=== PATIENT | female | born 1985 | race Caucasian/White ===

== ENCOUNTER 2016-12-16 13:40 | Emergency (ER) | payer MEDICAID ==
[~2016-12-16] VITALS: Ht 157.5 cm; Wt 52.8 kg
[2016-12-16 13:43] VITALS: BP 133/70
== END 2016-12-16 14:29 | disposition home or self-care (01) ==
LOC: ED 14:23
DX: K01.1 Impacted teeth (principal)
CPT/HCPCS: 99283

== ENCOUNTER 2017-01-07 21:26 | Emergency (ER) | payer MEDICAID ==
[~2017-01-07] VITALS: Ht 157.5 cm; Wt 54.4 kg
[2017-01-07 21:40] VITALS: BP 132/84
== END 2017-01-07 23:33 | disposition home or self-care (01) ==
LOC: ED 23:22
DX: K08.89 Other specified disorders of teeth and supporting structures (principal)
CPT/HCPCS: 99283

== ENCOUNTER 2017-06-10 10:39 | Inpatient (IN) | payer MEDICAID ==
[~2017-06-10] VITALS: Ht 154.9 cm; Wt 63.6 kg
[2017-06-10 12:27] LABS: AMNI OBC PASS; AMNISURE POSITIVE (NEGATIVE)
[2017-06-10] MEDS ORDERED: OXYTOCIN 30U/ 0.9% NaCL 500ML 500 ML IV ONE (12:41)
[2017-06-10] MEDS ORDERED: FENTANYL PF 100 MCG/2ML IVPush PRN (13:00)
[2017-06-10] MEDS ORDERED: FENTANYL PF 100 MCG/2ML IV PRN (13:00)
[2017-06-10] MEDS ORDERED: ONDANSETRON 2MG/ML, 2ML IVPush PRN (13:00)
[2017-06-10 13:05] LABS: HEMATOCRIT 44.8 % (34.6-47.8); HEMOGLOBIN 15.4 g/dL (11.7-16.4); WHITE BLOOD COUNT 17.3 x10^3/uL (3.4-10)
[2017-06-10] MEDS ORDERED: MISOPROSTOL 200 MCG TABLET ONE (13:22)
[2017-06-10] MEDS ORDERED: NEWBORN KIT ONE (13:23)
[2017-06-10] MEDS ORDERED: LIDOCAINE 1%, 20ML ONE (13:23)
[2017-06-10 13:52] LABS: BLOOD UREA NITROGEN 8 mg/dL (7-18)
[2017-06-10 13:55] LABS: ASPARTATE AMINO TRANSFERASE 28 U/L (15-37)
[2017-06-10] MEDS ORDERED: LABETALOL 5MG/ML, 20ML ONE (15:16)
[2017-06-10] MEDS: LABETALOL 5MG/ML, 20ML IVPush PRN ×3 (15:21→17:21)
[2017-06-10] MEDS ORDERED: CALCIUM CARBONATE 500 MG TAB.CHEW ONE ×2 (17:27→23:57)
[2017-06-10] MEDS: CALCIUM CARBONATE 500 MG TAB.CHEW PO PRN ×2 (17:29→23:59)
[2017-06-10] MEDS: D5%-LACTATED RINGERS 1,000 ML IV SCH ×2 (17:45→20:41)
[2017-06-10] MEDS: LACTATED RINGERS 1,000 ML IV SCH (17:45)
[2017-06-10] MEDS ORDERED: CEFAZOLIN PMX 1GM/50ML 50 ML ONE (17:52)
[2017-06-10] MEDS: CEFAZOLIN PMX 1GM/50ML 50 ML IV SCH (18:15)
[2017-06-10] MEDS ORDERED: CEFAZOLIN 1,000 MG IM SCH (18:30)
[2017-06-10] MEDS ORDERED: OXYTOCIN 30U/ 0.9% NaCL 500ML 500 ML IV PRN (19:15)
[2017-06-10] MEDS ORDERED: OXYTOCIN 30U/ 0.9% NaCL 500ML 500 ML ONE (19:19)
[2017-06-10 20:31] LABS: HEMATOCRIT 39.2 % (34.6-47.8); HEMOGLOBIN 13.6 g/dL (11.7-16.4); WHITE BLOOD COUNT 18.1 x10^3/uL (3.4-10)
[2017-06-10 20:39] LABS: ASPARTATE AMINO TRANSFERASE 32 U/L (15-37); BLOOD UREA NITROGEN 9 mg/dL (7-18)
[2017-06-10] MEDS ORDERED: ONDANSETRON 2MG/ML, 2ML ONE (22:35)
[2017-06-11] MEDS ORDERED: FENTANYL PF 100 MCG/2ML ONE (01:00)
[2017-06-11] MEDS ORDERED: FENTANYL/BUPIV./NS/PF 250 ML EPIDCONT ONE ×2 (01:10→01:13)
[2017-06-11] MEDS: LACTATED RINGERS 1,000 ML IV SCH ×5 (01:54→12:41)
[2017-06-11] MEDS ORDERED: FENTANYL/BUPIV./NS/PF 250 ML EPIDCONT SCH (01:54)
[2017-06-11] MEDS ORDERED: NALOXONE 0.4 MG/ML, 1ML IVPush PRN (02:00)
[2017-06-11] MEDS ORDERED: EPHEDRINE 50 MG/ML, 1ML IVPush PRN (02:00)
[2017-06-11] MEDS ORDERED: LACTATED RINGERS 1,000 ML IVBOLUS PRN (02:00)
[2017-06-11] MEDS ORDERED: CEFAZOLIN PMX 1GM/50ML 50 ML ONE ×2 (02:22→09:39)
[2017-06-11] MEDS: CEFAZOLIN PMX 1GM/50ML 50 ML IV SCH ×3 (02:30→18:13)
[2017-06-11] MEDS: D5%-LACTATED RINGERS 1,000 ML IV SCH ×2 (04:41→12:41)
[2017-06-11] MEDS: OXYTOCIN 30U/ 0.9% NaCL 500ML 500 ML IV SCH ×7 (08:15→18:15)
[2017-06-11] MEDS ORDERED: OXYcodone IR 5MG TABLET PO PRN (08:30)
[2017-06-11] MEDS ORDERED: CARBOPROST TROMETHAMINE 250 MCG/ML, 1ML IM PRN (08:30)
[2017-06-11] MEDS ORDERED: ONDANSETRON 2MG/ML, 2ML IV PRN (08:30)
[2017-06-11] MEDS ORDERED: OXYTOCIN 10 UNITS/ML, 1ML IM PRN (08:30)
[2017-06-11] MEDS ORDERED: ACETAMINOPHEN 325 MG TABLET PO PRN ×2 (08:30)
[2017-06-11] MEDS ORDERED: MAGNESIUM HYDROXIDE 8%, 30ML UDC PO PRN (08:30)
[2017-06-11] MEDS: PRENATAL VIT/IRON/FA 1 EACH TABLET PO SCH ×2 (09:00→18:45)
[2017-06-11] MEDS ORDERED: IBUPROFEN 600 MG TABLET ONE (09:30)
[2017-06-11] MEDS ORDERED: ACETAMINOPHEN 325 MG TABLET ONE (09:33)
[2017-06-11 11:00] VITALS: BP 139/72
[2017-06-11] MEDS: CALCIUM CARBONATE 500 MG TAB.CHEW PO PRN (13:04)
[2017-06-11 15:00] VITALS: BP 135/89
[2017-06-11] MEDS: IBUPROFEN 600 MG TABLET PO PRN ×2 (15:49→22:08)
[2017-06-11 16:27] LABS: HEMATOCRIT 35.3 % (34.6-47.8); HEMOGLOBIN 12.1 g/dL (11.7-16.4); WHITE BLOOD COUNT 23.7 x10^3/uL (3.4-10)
[2017-06-11 16:52] LABS: DIFF TOTAL CELLS COUNTED 200 CELL DIFF; VERIFY COUNTS? YES
[2017-06-11 16:53] LABS: LARGE PLATELETS 1+
[2017-06-11 19:57] VITALS: BP 136/80
[2017-06-12] VITALS (7 sets, daily range): BP systolic 121–163; BP diastolic 72–95
[2017-06-12] MEDS: OXYcodone/APAP 5/325MG TABLET PO PRN ×5 (00:19→23:22)
[2017-06-12] MEDS: CEFAZOLIN PMX 1GM/50ML 50 ML IV SCH (02:16)
[2017-06-12] MEDS: OXYTOCIN 30U/ 0.9% NaCL 500ML 500 ML IV SCH (04:15)
[2017-06-12] MEDS: PRENATAL VIT/IRON/FA 1 EACH TABLET PO SCH (08:43)
[2017-06-12] MEDS: DOCUSATE 100 MG CAPSULE PO PRN ×2 (08:43→20:49)
[2017-06-12] MEDS: IBUPROFEN 600 MG TABLET PO PRN ×3 (09:08→23:21)
[2017-06-12] MEDS: LABETALOL 100 MG TABLET PO SCH (21:33)
[2017-06-13] VITALS: BP 140/81
[2017-06-13 05:00] VITALS: BP 156/98
[2017-06-13] MEDS: OXYcodone/APAP 5/325MG TABLET PO PRN ×2 (05:04→09:43)
[2017-06-13 06:15] VITALS: BP 152/86
[2017-06-13] MEDS: IBUPROFEN 600 MG TABLET PO PRN (06:23)
[2017-06-13] MEDS: LABETALOL 100 MG TABLET PO SCH (08:10)
[2017-06-13] MEDS: DOCUSATE 100 MG CAPSULE PO PRN (08:10)
[2017-06-13] MEDS: PRENATAL VIT/IRON/FA 1 EACH TABLET PO SCH (08:10)
[2017-06-13] MEDS ORDERED: IBUP-1223 PO (08:24)
[2017-06-13] MEDS ORDERED: OXYC-302 PO (08:24)
[2017-06-13] MEDS ORDERED: LABE100T3 PO (08:25)
[2017-06-13 09:30] VITALS: BP 149/88
== END 2017-06-13 13:45 | disposition home or self-care (01) | DRG 775 ==
LOC: LDOP 10:39 → LDIP 12:58 → 2NW 06-11 10:39
PROVIDERS: ADMIT Obstetrics & Gynecology; ATTEND Obstetrics & Gynecology
PROC: 10E0XZZ Delivery of Products of Conception, External Approach (ICD-10-PCS; principal; 2017-06-11)
PROC: 3E0R3BZ Introduction of Anesthetic Agent into Spinal Canal, Percutaneous Approach (ICD-10-PCS; 2017-06-11)
PROC: 00HU33Z Insertion of Infusion Device into Spinal Canal, Percutaneous Approach (ICD-10-PCS; 2017-06-11)
DX: O14.94 Unspecified pre-eclampsia, complicating childbirth (principal); O42.02 Full-term premature rupture of membranes, onset of labor within 24 hours of rupture; Z37.0 Single live birth; Z3A.39 39 weeks gestation of pregnancy
CPT/HCPCS: 36415; 80053; 82248; 84112; 84550; 85025; 86850; 86870; 86900; 86922; 86923; J0690; J2405; J3010; J2590; J7120; J7121

== ENCOUNTER 2018-10-05 10:19 | Emergency (ER) | payer MEDICAID ==
[~2018-10-05] VITALS: Ht 157.5 cm; Wt 50.0 kg
[~2018-10-05 10:19] MED LIST: IBUP-1223 PO; LABE100T6 PO; OXYC-302 PO
[2018-10-05] MEDS ORDERED: SODIUM CHLORIDE FLUSH 10ML SYR IVF ONE (10:30)
[2018-10-05] MEDS ORDERED: ONDANSETRON 2MG/ML, 2ML IVPush ONE (10:30)
[2018-10-05] MEDS ORDERED: ONDANSETRON 2MG/ML, 2ML ONE (10:56)
[2018-10-05 11:04] LABS: BASOPHILS # (AUTO) 0.02 x10^3/uL (0-0.1); BASOPHILS % (AUTO) 0 % (0-1); EOSINOPHILS # (AUTO) 0.34 x10^3/uL (0-0.4); EOSINOPHILS % (AUTO) 3 % (1-7); LYMPHOCYTES # (AUTO) 1.52 x10^3/uL (1-3.4); LYMPHOCYTES % (AUTO) 11 % (22-44); MD NO; MEAN CORPUSCULAR HEMOGLOBIN 32.4 pg (27.0-34.8); MEAN CORPUSCULAR HGB CONC 34.4 g/dL (32.4-35.8); MEAN CORPUSCULAR VOLUME 94.3 fL (80-100); MEAN PLATELET VOLUME 8.4 fL (7.4-10.4); MONOCYTES # (AUTO) 0.18 x10^3/uL (0.2-0.8); MONOCYTES % (AUTO) 1 % (2-9); NEUTROPHILS # (AUTO) 11.77 x10^3/uL (1.8-6.8); NEUTROPHILS % (AUTO) 85 % (42-75); PLATELET COUNT 340 x10^3/uL (130-400); RED BLOOD COUNT 4.55 x10^6/uL (3.82-5.3); RED CELL DISTRIBUTION WIDTH 14.1 % (9.6-15.2)
[2018-10-05 11:17] LABS: ALBUMIN 4.1 g/dL (3.4-5.0); ANION GAP 18 mmol/L (5-15); CALCIUM 8.4 mg/dL (8.5-10.1); CHLORIDE 105 mmol/L (98-107)
[2018-10-05 11:20] LABS: ALANINE AMINOTRANSFERASE 45 U/L (12-78); ALKALINE PHOSPHATASE 73 U/L (45-117); BILIRUBIN,TOTAL 0.5 mg/dL (0.2-1.0); CREATININE 0.83 mg/dL (0.55-1.02); TOTAL PROTEIN 7.2 g/dL (6.4-8.2)
[2018-10-05 11:46] LABS: HCG UR SG 1.027 (1.003-1.030); MICROSCOPIC NOT IND
[2018-10-05 11:53] LABS: CULTURE INDICATED? NO
[2018-10-05] MEDS ORDERED: SODIUM CHLORIDE 0.9% 1,000ML IVBOLUS ONE (12:30)
[2018-10-05 14:18] VITALS: BP 109/39
--- NOTE | 2018-10-05 14:19 | NUR ---
PT D/C WITH DC SUMMARY AND SCRIPT. PT VSS. PT EDUCATED ON HOME CARE AND VERBALIZES UNDERSTANDING. PT DENIES ANY OTHER NEEDS PERTAINING TO THIS VISIT.
== END 2018-10-05 14:21 | disposition home or self-care (01) ==
LOC: ED 11:11
DX: K52.9 Noninfective gastroenteritis and colitis, unspecified (principal); E86.0 Dehydration
CPT/HCPCS: 36415; 80053; 81003; 81025; 83690; 85025; 96361; 96374; 99283; J2405; J7030